=== PATIENT | female | born 1950 | race Caucasian/White ===

== ENCOUNTER 2017-03-13 10:31 | Outpatient (CLI) | payer BC ==
--- NOTE | 2017-03-13 11:01 | DIAGNOSTIC IMAGING REPORT ---
PROCEDURE: DEXA BONE DENSITY STUDY CLINICAL INDICATION: POST MENOPAUSAL COMPARISON: DEXA 11/03/2003 FINDINGS: LUMBAR SPINE: Bone mineral density 0.722 g/cm2, T score -3.0 osteoporosis which represents a 14.5% decrease from the previous study LEFT HIP: Bone mineral density 0.677 g/cm2, T score -2.2 osteopenia which represents an 11% decrease from the previous study LEFT FEMORAL NECK: Bone mineral density 0.542 g/cm2, T score -2.8 osteoporosis which represents a 12.7% decrease from the previous study FRACTURE RISK CALCULATION ( when applicable): 10-year fracture risk of a major osteoporotic fracture and of a hip fracture not reported because some T-score at or below -2.5 (T score greater or equal to -1.0 to: NORMAL) (T score from -1.1 to -2.4: OSTEOPENIA) (T score ess than or equal to -2.5: OSTEOPOROSIS) IMPRESSION: 1. Osteoporosis lumbar spine and femoral neck, osteopenia left hip
== END 2017-03-13 23:00 ==
LOC: XR SRH 10:31
DX: M81.0 Age-related osteoporosis without current pathological fracture (principal)